=== PATIENT | female | born 1940 | race Caucasian/White ===

== ENCOUNTER → 2018-11-28 | Outpatient (CLI) | payer MEDICARE, OTHER ==
--- NOTE | 2018-11-29 11:07 | ECHOF ---
Referral Reason:R01 Cardiac murmur MEASUREMENTS -------- HEIGHT: 160.0 cm WEIGHT: 86.2 kg BP: RVIDd: 2.1 cm (< 3.3) IVSd: 1.3 cm (0.6 - 1.1) LVIDd: 3.7 cm (3.9 - 5.3) LVPWd: 1.5 cm (0.6 - 1.1) IVSs: 1.6 cm LVIDs: 2.6 cm LVPWs: 1.7 cm LAESV Index (A-L): 30.93 ml/m Ao Diam: 2.8 cm (2.0 - 3.7) AV Cusp: 1.0 cm (1.5 - 2.6) LA Diam: 4.2 cm (2.7 - 3.8) MV EXCURSION: 12.495 mm (> 18.000) MV EF SLOPE: 60 mm/s (70 - 150) EPSS: 1.5 cm MV E Artis: 1.25 m/s MV DecT: 214 ms MV A Artis: 0.51 m/s MV E/A Ratio: 2.45 AV maxP.55 mmHg AV meanP.02 mmHg AR PHT: 517 ms RAP: 5.00 mmHg RVSP: 12.05 mmHg FINDINGS -------- Sinus rhythm. This was a technically good study. The left ventricular size is normal. There is moderate concentric left ventricular hypertrophy. O verall left ventricular systolic function is normal with, an EF between 55 - 60 %. The right ventricle is normal in size and function. LA is midly dilated 29-33ml/m2. The right atrium is normal in size. Aortic valve is trileaflet and is moderately thickened. There is mild aortic regurgitation. There is moderate aortic stenosis present. The mitral valve leaflets are mildly thickened. Mild mitral annular calcification present. Modera te mitral regurgitation is present. Mild tricuspid regurgitation present. The right ventricular systolic pressure, as measured by Doppl er, is 12.05mmHg. Pulmonic valve appears structurally normal. The aortic root size is normal. Normal inferior vena cava with normal inspiratory collapse consistent with estimated right atrial pre ssure of 5 mmHg. The pericardium is normal. CONCLUSIONS -------- 1. Sinus rhythm. 2. This was a technically good study. 3. The left ventricular size is normal. 4. There is moderate concentric left ventricular hypertrophy. 5. Overall left ventricular systolic function is normal with, an EF between 55 - 60 %. 6. The right ventricle is normal in size and function. 7. LA is midly dilated 29-33ml/m2. 8. The right atrium is normal in size. 9. Aortic valve is trileaflet and is moderately thickened. 10. There is mild aortic regurgitation. 11. There is moderate aortic stenosis present. 12. The mitral valve leaflets are mildly thickened. 13. Mild mitral annular calcification present. 14. Moderate mitral regurgitation is present. 15. Mild tricuspid regurgitation present. 16. The right ventricular systolic pressure, as measured by Doppler, is 12.05mmHg. 17. Pulmonic valve appears structurally normal. 18. The aortic root size is normal. 19. Normal inferior vena cava with normal inspiratory collapse consistent with estimated right atrial pressure of 5 mmHg. 20. The pericardium is normal. APPLICATION PACKAGER: Stefania Spencer RDCS
== END ==
LOC: RADECHMAIN 15:50
PROVIDERS: ATTEND Family Medicine
DX: R01.1 Cardiac murmur, unspecified (principal); I08.3 Combined rheumatic disorders of mitral, aortic and tricuspid valves; I35.0 Nonrheumatic aortic (valve) stenosis; I70.8 Atherosclerosis of other arteries
CPT/HCPCS: 93306